=== PATIENT | male | born 2000 | race Two or more races ===

== ENCOUNTER 2021-04-28 05:48 | Emergency (ER) | payer BC, OTHER ==
[~2021-04-28] VITALS: Ht 170.2 cm; Wt 59.0 kg
[2021-04-28 06:03] VITALS: BP 112/71
[2021-04-28] MEDS ORDERED: ACETAMINOPHEN 500 MG TAB PO ONE (07:30)
[2021-04-28] MEDS ORDERED: METHOCARBAMOL 500 MG TAB PO ONE ×2 (07:30→07:45)
== END 2021-04-28 08:18 | disposition home or self-care (01) ==
LOC: ER 05:48 → EDBD 05:48 → ER 08:18
DX: S39.012A Strain of muscle, fascia and tendon of lower back, initial encounter (principal); R51.9 Headache, unspecified; R10.84 Generalized abdominal pain; Z94.4 Liver transplant status; V89.2XXA Person injured in unspecified motor-vehicle accident, traffic, initial encounter; Y93.I9 Activity, other involving external motion; Y92.488 Other paved roadways as the place of occurrence of the external cause; Y99.8 Other external cause status
CPT/HCPCS: 70450; 72125; 72131; 74176